=== PATIENT | female | born 1955 | race Caucasian/White ===

== ENCOUNTER → 2018-01-14 | Outpatient (CLI) | payer OTHER ==
[2018-01-14] MEDS: IOHEXOL 300 MG/ML 100ML VIAL. IV (10:20)
== END | disposition home or self-care (01) ==
LOC: KCIC CT 09:11
DX: N94.89 Other specified conditions associated with female genital organs and menstrual cycle (principal); I70.0 Atherosclerosis of aorta; I10 Essential (primary) hypertension; E78.5 Hyperlipidemia, unspecified; E03.9 Hypothyroidism, unspecified
CPT/HCPCS: 74178; Q9967